=== PATIENT | male | born 1995 | race Two or more races ===

== ENCOUNTER 2019-07-02 18:42 | Emergency (ER) | payer MEDICAID ==
[~2019-07-02] VITALS: Ht 167.6 cm; Wt 61.2 kg
--- NOTE | 2019-07-02 18:45 | NUR ---
PT BIBRA TO ER BED 01 C/O L KNEE PAIN POSSIBLE PATELLAR DISLOCATION WHILE PLAYING SOCCER. DENIES ANY OTHER INJURY. STABLE VITALS. AWAITING MD AMARO.
--- NOTE | 2019-07-02 18:49 | NUR ---
ANUJ FAROOQ AT BEDSIDE FOR EVAL.
[2019-07-02] MEDS ORDERED: HYDROCODONE/APAP 5/325MG 1 EACH TABLET ONE (18:53)
[2019-07-02] MEDS ORDERED: HYDROCODONE/APAP 5/325MG 1 EACH TABLET PO ONE (19:00)
--- NOTE | 2019-07-02 19:12 | NUR ---
REPORT TO DRY CLEANER HELPER JESSICA RILEY FOR [facility].
--- NOTE | 2019-07-02 19:34 | NUR ---
EMT AT BEDSIDE FOR VINNY WRAP. [employer] NEWSPAPER DELIVERER AT BEDSIDE FOR EVAL OF PATELLA. VSS. PT ABLE TO FLEX KNEE.
--- NOTE | 2019-07-02 19:56 | NUR ---
PT WHEELED OUT TO THE WAITING ROOM. FATHER IN WAITING ROOM TO TRANSIT POLICE OFFICER PATIENT. PT ABLE TO AMBULATE WITH STEADY GAIT. NO PAIN STATED BY PT. Patient discharged to home in stable condition. Written and verbal after care instructions given. Patient verbalizes understanding of instruction. vss.
[2019-07-02 19:58] VITALS: BP 131/78
== END 2019-07-02 19:58 | disposition home or self-care (01) ==
LOC: ER 18:42
DX: S83.015A Lateral dislocation of left patella, initial encounter (principal); Z88.0 Allergy status to penicillin; X58.XXXA Exposure to other specified factors, initial encounter; Y93.66 Activity, soccer; Y92.89 Other specified places as the place of occurrence of the external cause; Y99.8 Other external cause status
CPT/HCPCS: 73564-TC